=== PATIENT | male | born 1965 | race Hispanic/Latino ===

== ENCOUNTER 2018-05-28 07:59 | Day surgery (SDC) | payer MEDICAID ==
[~2018-05-28 07:59] MED LIST: ANCEF/STERILE WATER 2 GM/20 ML IV NR
[2018-05-28] MEDS ORDERED: LACTATED RINGERS 1,000 ML IV SCH (09:02)
[2018-05-28] MEDS ORDERED: PEPCID IV NR (09:03)
--- NOTE | 2018-05-28 09:08 | Anesthesia Consultation ---
Anesthesia Consult and Med Hx Date of service: 05/28/18 - Airway Anesthetic Teeth Evaluation: Good ROM Head & Neck: Adequate Mental/Hyoid Distance: Adequate Mallampati Class: Class II Intubation Access Assessment: Good - Pulmonary Exam CTA: Yes - Cardiac Exam Cardiac Exam: No Murmur - Pre-Operative Health Status ASA Pre-Surgery Classification: ASA2 Proposed Anesthetic Plan: General - Pulmonary Hx Smoking: Yes (STOPPED 1996 , 2 PPD X 20 YRS) Hx Sleep Apnea: No (WILBER PRE SCREEN HIGH RISK) - Cardiovascular System Hx Hypertension: No - Other Systems Hx Cancer: No
--- NOTE | 2018-05-28 09:08 | Anesthesia Day of Surgery ---
Anesthesia Day of Surgery - Day of Surgery Patient Examined: Yes Patient H&P Reviewed: Yes Patient is NPO: Yes
[2018-05-28] MEDS ORDERED: VERSED IV NR (10:00)
[2018-05-28] MEDS ORDERED: DIPRIVAN 10 MG/ML IV ONE (10:30)
[2018-05-28] MEDS ORDERED: SUBLIMAZE ONE (10:31)
[2018-05-28] MEDS ORDERED: XYLOCAINE MPF 2% ONE (10:31)
[2018-05-28] MEDS ORDERED: ZOFRAN ONE (10:31)
--- NOTE | 2018-05-28 11:29 | Post Operative Note ---
Date of procedure: 05/28/18 Pre-op diagnosis: Reanal stones Post-op diagnosis: same Findings: large stone Procedure: ESWL Anesthesia: [place] Surgeon: BRADLEY BENAVIDES Estimated blood loss: none Pathology: none Condition: stable Disposition: PACU
--- NOTE | 2018-05-28 11:30 | Discharge Summary ---
Short Stay Discharge Plan Activity: other (no straining ) Weight Bearing Status: Full Weight Bearing Diet: regular, low fat, low salt Special Instructions: other (inc fluids ) Follow up with: CHEYANNE BOWERS MD [Primary Care Provider] - 7 Days BRADLEY BENAVIDES MD [Staff Physician] - 7 Days
[2018-05-28] MEDS ORDERED: ROBINUL ONE (11:38)
--- NOTE | 2018-05-28 13:52 | Operative Report ---
PREOPERATIVE DIAGNOSIS: Right 1 cm renal stone. POSTOPERATIVE DIAGNOSES: Right 1 cm renal stone. PROCEDURE: In situ right lithotripsy. SURGEON: Too Vega MD ANESTHESIA: General. FINDINGS: This is a gentleman with intermittent flank pain with bilateral stones. He now presents for lithotripsy. All risks and implications discussed. DESCRIPTION OF PROCEDURE: The patient was brought to lithotripsy, placed on the lithotripsy table. Stone was well localized, both the AP and oblique image. Shocks were begun at 1, increased to maximum of 7 kV. The patient tolerated the procedure well. There was clearly some spreading out of this large stone. The patient tolerated the procedure well. He may need further procedures such as percutaneous nephrostomy, ureteroscopy stenting or repeat lithotripsy. He was brought to recovery room in stable condition. JOB# [id number] ALICIA/FABIAN
[2018-05-28 14:58] VITALS: BP 130/70
== END 2018-05-28 08:00 | disposition home or self-care (01) ==
LOC: OR 07:59
PROVIDERS: ATTEND Urology
DX: N20.0 Calculus of kidney (principal); Z87.891 Personal history of nicotine dependence
CPT/HCPCS: 50590; J0690; J2405; J2704; J3010; J7120; J2250